=== PATIENT | male | born 1965 | race Caucasian/White ===

== ENCOUNTER 2023-05-10 09:57 | Observation (INO) | payer OTHER ==
[2023-05-10 10:16] VITALS: BMI 27.7
[2023-05-10] MEDS: SODIUM CHLORIDE 0.9% 1000 ML INFUS.BAG IV ONE (13:30)
[2023-05-10 13:32] LABS: BASO % 0.5 % (0-2.0); EOS % 0.3 % (0-4.5); HEMATOCRIT 48.2 % (35.4-49); HEMOGLOBIN 16.9 GM/dL (11.7-16.9); LYMPH % 18.8 % (8-40); MCH 32.3 pg (25.7-33.7); MCHC 35.1 g/dl (32.0-35.9); MEAN CELL VOLUME 91.9 fl (80-96); MEAN PLT VOLUME 7.9 fl (7.5-11.1); MONO % 6.4 % (3.8-10.2); PLATELET COUNT 270 10^3/uL (134-434); RBC 5.24 M/mm3 (4.00-5.60); WHITE BLOOD COUNT 8.4 K/mm3 (4.0-10.0)
[2023-05-10 13:42] LABS: ACTIVATED PTT 32.6 SECONDS (25.2-36.5); INR 1.19 (0.83-1.09); PROTHROMBIN TIME (PATIENT) 13.8 SEC (9.7-13.0)
[2023-05-10 13:51] LABS: POTASSIUM 5.6 mmol/L (3.5-5.1)
[2023-05-10 13:53] LABS: CALCIUM 8.7 mg/dL (8.5-10.1)
[2023-05-10 13:54] LABS: ALBUMIN 4.2 g/dl (3.4-5.0); BLOOD UREA NITROGEN 16.2 mg/dL (7-18)
[2023-05-10 13:57] LABS: CREATININE 1.1 mg/dL (0.55-1.3)
[2023-05-10 13:58] LABS: BILIRUBIN,TOTAL 1.1 mg/dL (0.2-1); TOT PROT 8.1 g/dl (6.4-8.2)
[2023-05-10] MEDS: D5-1/2NS+20 MEQ KCL - 20 MEQ/1,000 ML INFUS.BAG IV SCH (19:20)
[2023-05-10 20:50] LABS: HEMATOCRIT 45.2 % (35.4-49); HEMOGLOBIN 15.5 GM/dL (11.7-16.9); MCH 31.9 pg (25.7-33.7); MCHC 34.2 g/dl (32.0-35.9); MEAN CELL VOLUME 93.3 fl (80-96); MEAN PLT VOLUME 7.7 fl (7.5-11.1); PLATELET COUNT 225 10^3/uL (134-434); RBC 4.85 M/mm3 (4.00-5.60); RDW 12.7 % (11.9-15.9)
[2023-05-10] MEDS: HEPARIN NA (PORCINE) 5,000 UNITS/ML 1ML VIAL SQ SCH (22:00)
[2023-05-11 09:22] LABS: BASO % 0.5 % (0-2.0); EOS % 3.5 % (0-4.5); HEMATOCRIT 43.4 % (35.4-49); LYMPH % 25.8 % (8-40); MCH 31.8 pg (25.7-33.7); MCHC 34.6 g/dl (32.0-35.9); MEAN PLT VOLUME 7.9 fl (7.5-11.1); MONO % 10.3 % (3.8-10.2); NEUT % 59.9 % (42.8-82.8); PLATELET COUNT 228 10^3/uL (134-434); RBC 4.72 M/mm3 (4.00-5.60); RDW 12.4 % (11.9-15.9); WHITE BLOOD COUNT 6.6 K/mm3 (4.0-10.0)
[2023-05-11 09:36] LABS: CALCIUM 7.7 mg/dL (8.5-10.1)
[2023-05-11 09:37] LABS: BLOOD UREA NITROGEN 10.2 mg/dL (7-18)
[2023-05-11 09:39] LABS: CREATININE 0.8 mg/dL (0.55-1.3)
[2023-05-11 09:41] LABS: BILIRUBIN,TOTAL 0.8 mg/dL (0.2-1)
[2023-05-11 13:27] VITALS: RESP 14
[2023-05-11 14:57] VITALS: BP 145/81; PULSE 63; TEMP 97.5
[2023-05-12 14:26] LABS: ALBUMIN 3.1 g/dl (3.4-5.0); TOT PROT 6.1 g/dl (6.4-8.2)
== END 2023-05-11 16:45 | disposition home or self-care (01) ==
LOC: JER 09:57 → INTOOBSV 12:32 → UNDOADMOB 12:32 → JERBED 12:32 → J6S 19:39
PROVIDERS: ADMIT Internal Medicine; ATTEND Internal Medicine
PROC: 3E033GC Introduction of Other Therapeutic Substance into Peripheral Vein, Percutaneous Approach (ICD-10-PCS; principal; 2023-05-10)
PROC: 3E0337Z Introduction of Electrolytic and Water Balance Substance into Peripheral Vein, Percutaneous Approach (ICD-10-PCS; 2023-05-10)
DX: J45.909 Unspecified asthma, uncomplicated (principal); K62.89 Other specified diseases of anus and rectum; K92.2 Gastrointestinal hemorrhage, unspecified; R07.9 Chest pain, unspecified
CPT/HCPCS: 36415; 71260-TC; 72192-TC; 74177-TC; 80053; 80061; 82378; 82728; 83036; 83540; 83550; 84443; 84484; 85025; 85027; 85610; 85730; 86850; 86900; 86901; 93005; 93010; 93306-TC; 96365; 99285-25; G0378; Q9967